=== PATIENT | female | born 1960 | race Caucasian/White ===

== ENCOUNTER 2023-10-30 21:48 | Inpatient (IN) | payer OTHER, SELFPAY ==
[2023-10-30 17:46] VITALS: BP 172/101
--- NOTE | 2023-10-30 18:19 | ED.GENMED ---
History of Present Illness
General
Chief Complaint: Headache
Source: patient
Exam Limitations: none
Time Seen by Provider: 10/30/23 17:58
Travel History
Have you had any contact with someone who has COVID-19?: No
Do you have any symptoms of coronavirus? Fever > 100 degrees, chills, cough, shortness of breath, sore throat, loss of taste or smell, muscle aches, or headache?: No
History of Present Illness
History of Present Illness:
This is a 63 year old female that comes in with c/o right frontal headache. States that she has Surgery on the right knee on Aug 30. States that she noticed at that time that she had a headache but i was mild. States that she was taking Tylenol for
her knee and it would help. States that on Tuesday she went to see the PCP as the pain had progressed. States that she ordered an MRI but she is waiting for approval. States that she was place on a steroid taper and she only took 2 tablets today
and one tomorrow. States that the pain has increased since she is almost done the steroids. State that it is a sharp pain and it is constant. States that she can't hardly sleep and it is only on the right frontal area. Denies any fever, chills,
chest pain, SOB, abd pain, nausea, vomiting, diarrhea, dizziness, urinary burning.
Past History
Past History
ED Past Medical History: Cancer (Lung CA), HTN and Other (Diverticulitis)
ED Past Surgical History: Appendectomy, Bowel resection, , Orthopedic (Carpal tunnel, Right total knee replacement) and Other (Partial thyroidectomy)
Social History
Tobacco: Former smoker
Alcohol: None
Personal:
Living: with family
Review of Systems
Review of Systems
All Other Systems: ROS reviewed and negative except as documented in HPI and ROS
Constitutional: Reports no symptoms; Denies fever or chills
EENT: Reports no symptoms
Respiratory: Reports no symptoms; Denies cough or trouble breathing
Cardiac: Reports no symptoms; Denies chest pain
ABD/GI: Reports no symptoms; Denies abdominal pain, nausea, vomiting or diarrhea
: Reports no symptoms; Denies dysuria or urgency
Musculoskeletal: Reports no symptoms
Skin: Reports no symptoms
Neurological: Reports headache (right sided); Denies dizzy
Psychiatric: Reports no symptoms
Phy Exam
General Physical Exam
General Presentation: mild distress
General age: appears stated age
General Skin: warm and dry
General Habitus: normal
General Mental: alert
General Hydration: dry mucous membranes
ENT Exam
ENT Exam: TM's normal, pharynx normal and neck supple
Eye Exam
Eye Exam: EOMI
Cardiovascular Exam
Cardiovascular Exam: regular rate/rhythm, no edema, no murmur and normal peripheral pulses
Pulmonary Exam
Pulmonary Exam: lungs clear, no respiratory distress, no rales, chest non tender, no crackles, no rhonchi, no wheezing and no cough
Gastrointestinal Exam
Gastrointestinal Exam: normal bowel sounds, non tender, soft, no organomegaly, no pulsatile mass and non distended
Musculoskeletal Exam
Musculoskeletal Exam: full ROM and no edema
Skin Exam
Skin Exam: normal color, warm/dry, no rash and no petechia
Psychiatric Exam
Psychiatric Exam: normal mood/affect
Course
Orders/Labs/Results
Orders:
Orders
10/30/23 18:18
CT Head W/o Iv Contrast Urgent
Comment:
Reason For Exam: Right frontal headache
Acetaminophen [Tylenol] 1,000 mg PO NOW STA
Dexamethasone Sod Phosphate [Decadron] 20 mg IV NOW STA
Ketorolac [Toradol] 30 mg IV NOW STA
10/30/23 19:07
Complete Blood Count/With Diff Urgent
Comprehensive Metabolic Panel Urgent
Abnormal Lab Results
10/30/23
19:07
RBC 4.16 L 10^6/uL
(4.20-5.40)
Hct 36.2 L %
(37.0-47.0)
Lymphocytes % 18.6 L %
(20.5-51.1)
BUN 38 H mg/dl
(7-17)
Creatinine 1.1 H mg/dL
(0.6-1.0)
Glucose 114 H mg/dl
(70-99)
10/30/23 19:07
10/30/23 19:07
Dehydration. Glucose nonfasting.
Vital Signs
Initial and Last Documented VS:
Initial Vital Signs
Temp Pulse Resp BP Pulse Ox
97.8 F 107 17 172/101 99
10/30/23 17:46 10/30/23 17:46 10/30/23 17:46 10/30/23 17:46 10/30/23 17:46
Last Documented Vital Signs
Temp Pulse Resp BP Pulse Ox
97.8 F 99 18 128/91 97
10/30/23 17:46 10/30/23 19:10 10/30/23 19:10 10/30/23 19:10 10/30/23 19:10
MDM/Problems Addressed
Differential Diagnosis Includes:
Glioblastoma, Complicated Migraine
MDM/Problems Addressed:
This is a 63 year old female that comes in with c/o right sided headache pain. States that she felt someting after her knee surgery on Aug 30. States that this has continued to get worse and now that she is almost off the steroids the pain is
constant and getting worse. States that she can't hardly sleep.
Will check labs, CT, give IV steroids and pain medication.
Back into see patient. Explained that there is a mass in the right posterior head. This will need further evaluation. Spoke with Dr. Parisa Powell and she felt that patient could stay here until further evaluated. Will admit to the hospitalist.
Hospitalist notified.
Chronic conditions affecting care: Cancer
Acute Exacerbation and/or Progression of Chronic Illness: Cancer
*Radiology
Radiology exam reviewed: radiology read reviewed (CT head-Large amount of asymmetric olow attenuation in the white matter of the right cerebellar hemisphere suspicious for vasogenic edema surrounding a right cerebellar metastasis given the history
of headache and metastatic lung cancer. 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 Mild to moderate bllateral frontal lobe volume
loss)
*Pulse Oximetry
Patient hypoxic: no
*EKG
Interpreted by ED Provider?: NA
Rate: EKG- N/A
*Wad Compressor Operator Adjuster Interpretation
Rate: Wad Compressor Operator Adjuster- N/A
*Critical Care Note
Total Time (30-74mins, 75-104mins- exclusive of procedures): Not Applicable
ED Attending Note
-
Portions of this chart may have been created with voice recognition software.� Occasional wrong word or��sound alike� substitutions may have occurred due to the inherent limitations of voice recognition software.
Discharge Plan
Departure
Patient Disposition: Admit
Date of Disposition: 10/30/23
Time of Disposition: 20:26
Admit to: Med/Surg
Presentation/result/management discussed w/ accepting MD/DO: Hospitalist
Condition: Good
Covid-19: Not Applicable
Discharge Problem:
Headache, Brain tumor
Referrals:
Marycruz Zhao CRNP [Family Provider] -
Interventions
Interventions:
*Risk Screen - Suicide Last Done: 10/30/23 18:39
*General Assessment Last Done: 10/30/23 17:47
*Neglect/Abuse Screening Last Done: 10/30/23 18:39
ED- Fall Risk Assessment Last Done: 10/30/23 18:39
*ED COVID-19 Vaccine History Last Done: 10/30/23 17:47
ED- Neurological Assessment Last Done: 10/30/23 18:39
Discharge Date and Time
Print Language: HAITIAN
[2023-10-30] MEDS: TYLENOL 1000 MG PO (18:35)
[2023-10-30 18:36] VITALS: BMI 28.0
[2023-10-30] MEDS: TORADOL 30 MG IV (19:03)
[2023-10-30] MEDS: DECADRON 20 MG IV (19:03)
[2023-10-30 19:10] VITALS: BP 128/91
[2023-10-30 19:17] LABS: % Basophils 0.9 % (0-2); % Eosinophils 0.3 % (0-6); % Immature Granulocytes 0.4 % (0-0.5); % Lymphocytes 18.6 % (20.5-51.1); % Monocytes 6.7 % (1.7-9.3); % Neutrophils 73.1 % (42.2-75.2); Absolute Basophils 0.1 10^3/uL (0-0.2); Absolute Lymphocytes 1.3 10^3/uL (1.2-3.4); Absolute Monocytes 0.5 10^3/uL (0.1-0.6); Absolute Neutrophils 4.9 10^3/uL (1.4-6.5); Hematocrit 36.2 % (37.0-47.0); Hemoglobin 12.6 g/dL (12.0-16.0); Mean Corp Hgb Conc. 34.8 g/dL (33.0-37.0); Mean Corpuscular Hgb 30.3 pg (27.0-31.0); Mean Platelet Volume 9.2 fL (7.4-10.4); Nucleated Red Blood Cells % 0 %; Platelet Count 325 10^3/uL (130-400); Red Blood Cell Count 4.16 10^6/uL (4.20-5.40); Red Cell Dist. Width 13.6 % (11.5-14.5); White Blood Cell Count 6.8 10^3/uL (4.8-10.8)
[2023-10-30 19:30] LABS: ALT (SGPT) 18 U/L (0-35); AST (SGOT) 23 U/L (14-36); Albumin 4.4 g/dl (3.5-5.0); Alkaline Phosphatase 106 U/L (38-126); Blood Urea Nitrogen 38 mg/dl (7-17); Calcium 9.6 mg/dl (8.4-10.2); Carbon Dioxide 25 mmol/L (22-30); Chloride 104 mmol/L (98-107); Estimated Creatinine Clearance 45 ml/min; Glucose 114 mg/dl (70-99); Potassium 4.4 mmol/L (3.5-5.1); Sodium 135 mmol/L (135-145); Total Bilirubin 0.5 mg/dl (0.2-1.3); eGFR 55.76
--- NOTE | 2023-10-30 20:30 | W.PN.UPDATE ---
Update Note
Progress Note Update
Seen and examined and discussed with nurse practitioner in detail I am in agreement with plan and management mentioned by physician assistant teacher.
Patient seen and evaluated by the physician assistant teacher, presented to the hospital complaining of almost a month persistent frontal headache and progressively worsening, started after having a right knee replacement initially contributed to spinal
anesthesia and postoperative change, so primary care physician started on steroid and MRI brain is ordered pending approval.
Since last troponin the pain continued to get worse and presented to the hospital denied any vision change or any weakness or numbness in extremities no syncope or palpitation.
Workup in the ER concerning for vasogenic edema in right cerebellar areas.
She is awake, alert and oriented x 3 hold appropriate conversation
Vital signs reviewed
Physical exam:
General: Awake, alert and oriented x3, not in distress and holds appropriate conversation.
HEENT: No active discharge, ecchymosis or bruising, moist lips, tongue and mucous membrane.
Eyes: No discharge or red conjunctiva, no nystagmus, pupils are reactive and equal
Neck:Supple, no JVD no bruit no goiter.
Respiratory: Normal AP contour and diameter, normal chest wall movement, normal respiratory effort, no respiratory distress,
Lungs: Good air entry bilaterally, no wheezing or rhonchi, no rales or crackles
Heart: S1, S2 regular, normal rate, no added sound.
Gastrointestinal: Positive bowel sounds, soft, nontender, no guarding or rigidity or organomegaly
Musculoskeletal: , no chest wall abnormality or tenderness. All joints and extremities have good range of motion, no muscle tenderness or any joint swelling or tenderness.
Extremities: No pitting edema, good peripheral pulses, good range of motion
Skin: Warm and dry, no ulceration, normal color.
Neurological: Awake, alert and oriented x3, cranial nerve II-XII grossly intact, speech clear and comprehensive, good muscle tone, normal sensory and motor function
Psychiatric: Normal mood, normal thought and judgment, normal affect,
Workup including labs, imaging, EKG and archive reviewed.
Assessment and plan:
Headache: Concerning for right cerebellar mass with vasogenic edema, with known history of lung cancer concerning for mets.
Neurosurgery contacted and recommended MRI brain with and without and CT chest, abdominal pelvis patient does CT chest, abdominal pelvis every 3 months and Alvino Powell the last time was 2 months ago tried to get a copy but will still get a do the CTA
and in case if there is any new lesions specially patient natural cannot cancer she has sound like small cell lung cancer.
Decadron 20 mg given we will continue 6 mg of 6-hour
She is afraid of narcotics specially orally we will do a low-dose of morphine 1 mg and uptitrate as needed
Reglan for nausea as she admitted Zofran making her sick
Vasogenic edema, as above
History of lung cancer, diagnosed 2023 and did not get any chemo in the last 2 years and follow-up with Alvino Powell.
The rest of the assessment and management as per physician assistant teacher
All discussed with the patient and the family
Discussed with physician assistant teacher
CT brain:
1. Large amount of asymmetric low attenuation in the white matter of the RIGHT CEREBELLAR HEMISPHERE suspicious for VASOGENIC EDEMA surrounding a right cerebellar metastasis given the history of headache and metastatic lung cancer.
2. 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
3. Mild to moderate bilateral frontal lobe volume loss.
--- NOTE | 2023-10-30 21:03 | HPS.HSE ---
Family Physician
-
Family Physician: Marycruz Zhao
Chief Complaint
-
Headache
History of Present Illness
Patient is a 63 y/o female past medical history of hypertension and Stage IV Lung CA who presents with headache. She notes since she had her knee replacement in August she has had a constant right sided headache. She describes the pain a sharp
stab. She denies any associated photophobia or phonophobia. She denies any visual changes, numbness, tingling, weakness, or difficulty with speech. Work-up in the ED revealed a brain tumor in the right cerebellum with associated edema. Patient
reports she was diagnosed with lung cancer with bony mets in 2019. She states the lung cancer was inoperable thus she received chemotherapy and immunotherapy. She follows at [facility] but has not received any treatment since 2021, and has routine
CT scans every 3 months.
Medical History
Past Medical History
Past Medical History: Reports Other
Additional Past Medical History:
Stage 4 Lung Cancer s/p chemo/immunotherapy
Essential Hypertension
Past Surgical History: Reports Other
Additional Past Surgical History:
Section
Appendectomy
Bowel Resection
Right Total Knee Replacement
Partial Thyroidectomy
Bunionectomy
Social History
Tobacco: Former Smoker (Quit in 2013)
Alcohol: Occasional
Family History
Family History: Not pertinent
Allergies / Home Medications
Allergies reflects when Allergies were last updated in [employer].
Home Medications with original date entered in [employer]
Allergy/Medication List:
Allergies
Allergy/AdvReac Type Severity Reaction Status Date / Time
Opioids - Morphine Analogues Allergy Nausea / Verified 10/30/23 17:44
Vomiting
Penicillins Allergy Rash Verified 10/30/23 17:44
Home Medications
candesartan 32 mg-hydrochlorothiazide 25 mg tablet 1 tab PO DAILY 10/30/23
cetirizine 10 mg tablet (Zyrtec) 10 mg PO DAILY 10/30/23
Review of Systems
-
A 12 point ROS was completed and negative except as noted: Yes
Constitutional: Denies Fever or Chills
Respiratory: Denies Cough or Trouble Breathing
Cardiac: Denies Chest Pain or Palpitations
Physical Exam
Vital Signs
Vital Signs
Temp Pulse Resp BP Pulse Ox
97.8 F 99 18 128/91 97
10/30/23 17:46 10/30/23 19:10 10/30/23 19:10 10/30/23 19:10 10/30/23 19:10
Physical Exam
General: Comfortable and Conversant
HEENT: Anicteric, Moist mucous membranes and PERRLA
Respiratory: Clear and Non Labored Respirations
Cardiac: S1/S2 and Regular Rhythm
GI: Soft and Non Tender
Rectal: Deferred by Provider
Musculoskeletal: No Clubbing, No Cyanosis and No Edema
Skin: Warm and Dry
Neuro: Awake, Alert, Oriented and Nonfocal/grossly intact
Psych: Calm
Laboratory Results
-
10/30/23 19:07
10/30/23 19:07
Laboratory Results
Total Bilirubin 0.5 mg/dl (0.2-1.3) 10/30/23 19:07
AST 23 U/L (14-36) 10/30/23 19:07
ALT 18 U/L (0-35) 10/30/23 19:07
Alkaline Phosphatase 106 U/L (38-126) 10/30/23 19:07
Data Reviewed
-
Lab Data: Labs Reviewed by me
Old Records: Requested and Reviewed
Impression/Plan
-
Right Cerebellar Brain Mass with Vasogenic Edema, likely Metastatic Lung Cancer
-Consult Neurosurgery and Oncology
-Check Brain MRI with and without contrast
-Check Chest/Abd/Pelvis CT scan for re-staging
-Continue Decadron
-Monitor neuro-checks
-Attempt to obtain records [facility] of recent CT scan
Essential Hypertension
-Continue candesartan/HCTZ
DVT proph: SCDs
Code Status: Full Code
[2023-10-30 22:34] VITALS: BP 132/83
[2023-10-30] MEDS: TYLENOL 650 MG PO (23:05)
[2023-10-30 23:50] VITALS: BMI 28.8
[2023-10-31] MEDS: TYLENOL 650 MG PO ×2 (05:56→13:20)
[2023-10-31] MEDS: ORETIC 25 MG PO (07:15)
[2023-10-31] MEDS: DECADRON 6 MG IV ×3 (07:16→20:06)
[2023-10-31] MEDS: ZYRTEC 10 MG PO (07:16)
[2023-10-31] MEDS: OMNIPAQUE 50 ML PO (07:18)
[2023-10-31 07:26] VITALS: BP 142/91
[2023-10-31 07:55] LABS: Hematocrit 36.5 % (37.0-47.0); Hemoglobin 12.2 g/dL (12.0-16.0); Mean Corp Hgb Conc. 33.4 g/dL (33.0-37.0); Mean Corpuscular Hgb 29.9 pg (27.0-31.0); Mean Corpuscular Volume 89.5 fL (81.0-99.0); Mean Platelet Volume 9.4 fL (7.4-10.4); Platelet Count 300 10^3/uL (130-400); Red Blood Cell Count 4.08 10^6/uL (4.20-5.40); Red Cell Dist. Width 13.4 % (11.5-14.5)
[2023-10-31 08:17] LABS: Blood Urea Nitrogen 48 mg/dl (7-17); Calcium 9.5 mg/dl (8.4-10.2); Carbon Dioxide 22 mmol/L (22-30); Chloride 105 mmol/L (98-107); Estimated Creatinine Clearance 42 ml/min; Glucose 128 mg/dl (70-99); Potassium 4.4 mmol/L (3.5-5.1); Sodium 135 mmol/L (135-145); eGFR 50.23
[2023-10-31] MEDS: ATACAND 32 MG PO (08:45)
--- NOTE | 2023-10-31 09:37 | CON.ONC ---
Addendum entered and electronically signed by Bryan Perkins MD 10/31/23 12:11:
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 Fortunately, there is no evidence of active disease below the neck. Will await MRI. If she continues with a solitary dominant lesion, she most likely would
benefit in terms of palliation as well as longevity by neurosurgical resection. I discussed possible transfer to [facility] for the neurosurgery, she is comfortable staying here, although would most likely have to be transferred to
[place] for the surgery.
Original Note:
Impression
Impression
Stage IV lung cancer ([facility], chemo/immunotherapy)
Acute persistent frontal headaches
Brain mass on imaging
Vasogenic edema
Plan
Plan
10/30 WBC 8, Hgb 12, PLT 300
CBC w/ diff daily
CT c/a/p today
Neurosurgery consult
Pain/symptom management
Emotional support
We will follow. Await Neurosurgery consultation.
She may require transfer to [facility].
Patient History
History of Present Illness
Itzel Barrett is a 63 year old female that presented to the ER, 10/29, complaining of acute right frontal headaches. She recently had her right knee replaced in August 2023 and recalls having mild headaches at the time. She discussed with her PCP whom
ordered MRI which was pending insurance authorization. She was placed on a brief steroid taper. She describes the pain as sharp and she is holding her forehead. She has history of Stage IV lung cancer treated at [facility]. She had received Carboplatin,
Keytruda, and Pemetrexed. Keytruda was discontinued after a few months due to an episode of acute pneumonitis. She denies any associated dizziness, gait disturbance, photophobia or phonophobia She denies numbness, tingling, weakness, or difficulty
with speech. Work-up in the ED revealed a mass in the right cerebellum with associated edema. Patient reports she was diagnosed with lung cancer w/ bony mets after a bone biopsy in 2019. She states the lung cancer was inoperable thus she received
chemotherapy and immunotherapy. She follows at [facility] but has not received any treatment since 2021, and has routine CT scans every 3 months. She follows with Dr. Saúl Leija.
Past-Medical/Surgical History
Stage IV lung cancer ([facility])
Hypertension
Diverticulitis
Appendectomy
Bowel resection
Carpal tunnel
Right total knee replacement
Partial thyroidectomy
Former smoker x10 years
Patient Medication
�Medication �Instructions �Recorded �Confirmed �Last Taken �Type
candesartan 32 1 tab PO DAILY Blood Pressure 10/30/23 10/30/23 Unknown History
mg-hydrochlorothiazide 25 mg tablet
cetirizine 10 mg tablet (Zyrtec) 10 mg PO DAILY Allergies 10/30/23 10/30/23 Unknown History
Active Medications
Generic Name Dose Route Start Last Admin
Trade Name Freq PRN Reason Stop Dose Admin
Acetaminophen 650 mg 10/30/23 22:17 10/31/23 05:56
Acetaminophen 325 Mg Tablet PO 11/27/23 22:16 650 mg
Q4HPRN PRN Administration
mild pain/ fever>100.5F
Candesartan Cilexetil 32 mg 10/31/23 08:00 10/31/23 08:45
Candesartan 16 Mg Tablet PO 11/28/23 07:59 32 mg
DAILY ANGELLA Administration
Cetirizine HCl 10 mg 10/31/23 08:00 10/31/23 07:16
Cetirizine Hcl 10 Mg Tablet PO 11/28/23 07:59 10 mg
DAILY ANGELLA Administration
Dexamethasone Sodium Phosphate 6 mg 10/31/23 08:00 10/31/23 07:16
Dexamethasone 4 Mg/Ml 1 Ml Vial IV 11/28/23 07:59 6 mg
Q6H ANGELLA Administration
Heparin Sodium (Porcine) 500 unit 10/31/23 07:57
Heparin Flush Pf (100 Unit/Ml) 5 Ml Syringe IV 11/28/23 07:56
PRN PRN
SQ PORT FLUSH
Hydrochlorothiazide 25 mg 10/31/23 08:00 10/31/23 07:15
Hydrochlorothiazide 25 Mg Tablet PO 11/28/23 07:59 25 mg
DAILY ANGELLA Administration
Metoclopramide HCl 5 mg 10/30/23 22:17
Metoclopramide 10 Mg/2 Ml Vial IV 11/27/23 22:16
Q6HPRN PRN
nausea
Morphine Sulfate 1 mg 10/30/23 22:17
Morphine 2 Mg/Ml Syringe IV 11/13/23 22:16
Q4HPRN PRN
severe pain
Sodium Chloride 0 flush 10/30/23 23:00
Sodium Chloride 0.9% (Flush) Syringe IV 11/27/23 22:59
PER PROTOCOL ANGELLA
Review of Systems
-
History Source: Patient and Family
Constitutional: Reports No Symptoms
EENT: Reports No Symptoms
Respiratory: Reports No Symptoms
Cardiac: Reports No Symptoms
GI: Reports No Symptoms
Breast: Reports N/A
: Reports No Symptoms
Musculoskeletal: Reports No Symptoms
Skin: Reports No Symptoms
Neuro: Reports Headache
Endocrine: Reports No Symptoms
Hematologic/Lymphatic: Reports No Symptoms
Allergy / Immunology: Reports No Symptoms
Psych: Reports No Symptoms
Physical Exam
-
patient resting in bed. she is holding her forehead. She states that her pain is somewhat improved with steroids but it is hard to differentiate.
General: Well Developed, Well Nourished, No Apparent Distress and Conversant
HEENT: Negative Jaundice
Cardiology: S1 and S2; Negative Murmur
Pulmonary: Clear
GI: Normal Bowel Sounds
Genito-Urinary: Deferred by me
Musculoskeletal: Normal Gait & Station
Extremities: Pulses Present
Neurology: Non Focal
Skin: Warm, Dry and IV Access / Catheter Site (right chest wall port)
Hematologic / Lymphatic: No Lymphadenopathy
Psych: Calm
Labs
Lab Results
WBC 8.0 10^3/uL (4.8-10.8) 10/31/23 07:33
RBC 4.08 10^6/uL (4.20-5.40) L 10/31/23 07:33
Hgb 12.2 g/dL (12.0-16.0) 10/31/23 07:33
Hct 36.5 % (37.0-47.0) L 10/31/23:33
MCV 89.5 fL (81.0-99.0) 10/31/23 07:33
MCH 29.9 pg (27.0-31.0) 10/31/23 07:33
MCHC 33.4 g/dL (33.0-37.0) 10/31/23 07:33
RDW 13.4 % (11.5-14.5) 10/31/23 07:33
Plt Count 300 10^3/uL (130-400) 10/31/23 07:33
MPV 9.4 fL (7.4-10.4) 10/31/23 07:33
Abs Immat Gran (auto) 0.0 10^3/uL (0-0.05) 10/30/23 19:07
Absolute Neuts (auto) 4.9 10^3/uL (1.4-6.5) 10/30/23 19:07
Absolute Lymphs (auto) 1.3 10^3/uL (1.2-3.4) 10/30/23 19:07
Absolute Monos (auto) 0.5 10^3/uL (0.1-0.6) 10/30/23 19:07
Absolute Eos (auto) 0.0 10^3/uL (0-0.7) 10/30/23 19:07
Absolute Basos (auto) 0.1 10^3/uL (0-0.2) 10/30/23 19:07
Immature Gran % 0.4 % (0-0.5) 10/30/23 19:07
Neutrophils % 73.1 % (42.2-75.2) 10/30/23 19:07
Lymphocytes % 18.6 % (20.5-51.1) L 10/30/23 19:07
Monocytes % 6.7 % (1.7-9.3) 10/30/23 19:07
Eosinophils % 0.3 % (0-6) 10/30/23 19:07
Basophils % 0.9 % (0-2) 10/30/23 19:07
Creatinine 1.2 mg/dL (0.6-1.0) H 10/31/23 07:33
Vital Signs
Vital Signs
Temp Pulse Resp BP Pulse Ox
97.6 F 74 18 142/91 96
10/31/23 07:26 10/31/23 07:26 10/31/23 07:26 10/31/23 07:26 10/31/23 07:26
10/30/[address]: Large amount of asymmetric low attenuation in the white matter of the RIGHT CEREBELLAR HEMISPHERE suspicious for VASOGENIC EDEMA surrounding a right cerebellar metastasis given the history of headache and metastatic lung cancer. Mild
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 Mild to moderate bilateral frontal lobe volume loss.
10/31/23 CT c/a/p: There is a linear nodular area of parenchymal density at the lower anteromedial aspect of the right upper lobe presumably representing the area treated neoplasm/scarring. There is a 9 mm sclerotic lesion in the posterior aspect of
the right acetabulum which may be benign lesion or a treated metastasis.
[2023-10-31] MEDS: REGLAN 5 MG IV (13:28)
[2023-10-31] MEDS: MORPHINE SULFATE 1 MG IV (13:30)
[2023-10-31 15:13] VITALS: BP 130/79
--- NOTE | 2023-10-31 15:24 | PTOTSP ---
Orders received. Chart reviewed. Pt currently at independent level with basic self care, transfers and functional mobility in room and bathroom without AD. No skilled OT indicated at this time. Will sign off.
--- NOTE | 2023-10-31 15:39 | CM ---
inventory control manager reviewed patient's chart and met with patient and patient lives with her spouse in a bilevel home, patient is independent with adl's and ambulation, no dme, patient drives, patient has a prescription plan and uses [facility] pharmacy.
PCP: Dr. Tinoco
Plan; Home when stable, no needs.
--- NOTE | 2023-10-31 17:49 | CON.NS ---
Consultation
-
Date/Time Consultation Performed: 17:50; 10/31/2023
Performing Provider: Sherry
Chief Complaint
History of Present Illness
This is a neurosurgical consultation on a 63-year-old female, with past medical history of stage IV lung cancer, who presents with approximately 1 month history of right-sided frontal headaches. She had a right knee replacement in August 2023,
and reports that the headaches may have started at that time. She was placed on a brief steroid taper, which did help with her headaches. Once the steroids have been tapered off, the headache returned. She denies any bowel difficulties, double
vision, blurry vision. She denies any weakness, or any recent falls. She denies any nausea or vomiting. In the past, she has received carboplatin, Keytruda, and pemetrexed. She reports that she has been in remission/with stable disease since
2021. She reports that she has routine CT scans every 3 months. Her oncologist is Dr. Saúl aguilar. She had bony mets primarily to the bilateral hips, and sacrum. This was treated with radiation.
Review of Systems
-
A 10 point review of systems, including constitutional, ENT, cardiovascular, respiratory, GI, , musculoskeletal, neurologic, endocrinologic, psychiatric, was performed and was otherwise negative, except for stated in HPI.
Medication and Allergies
Home Medications
Home Medications
�Medication �Instructions �Recorded
candesartan 32 1 tab PO DAILY Blood Pressure 10/30/23
mg-hydrochlorothiazide 25 mg tablet
cetirizine 10 mg tablet (Zyrtec) 10 mg PO DAILY Allergies 10/30/23
Allergies
Allergies
Allergy/AdvReac Type Severity Reaction Status Date / Time
Opioids - Morphine Analogues Allergy Nausea / Verified 10/30/23 17:44
Vomiting
Penicillins Allergy Rash Verified 10/30/23 17:44
Physical Exam
-
Exam:
Awake, alert, no apparent distress.
Pupils are equal and reactive.
Extraocular movements are full, with minimal right lateral gaze nystagmus.
Face is symmetric, tongue is midline.
Motor: 5/5 strength bilaterally in upper and lower extremities.
Cerebellar: Right subtle [id number] dysmetria. Rapid alternating movements normal.
Head is normocephalic atraumatic.
Neck is supple.
Breathing nonlabored.
Pulses palpable.
Regular rhythm.
Abdomen is soft.
Extremities are warm.
Right subclavian port site is noted.
MRI of the brain with and without contrast performed on 10/31/2023 was reviewed. There is approximately 2 cm right superior cerebellar lesion, just abutting the tentorium, with adjacent vasogenic edema. Imaging appears to be most consistent with
metastatic lesion. No other lesions are noted.
Problems
-
Problem Status Onset Code
Brain tumor D49.6
Headache R51.9
Assessment / Plan
-
This is a 63-year-old female who presents with right cerebellar mass, in the setting of stage IV metastatic lung carcinoma history. Imaging demonstrates likely metastatic lesion.
Discussed management options with the patient. Given that this is a single solitary lesion, and that she has had stable disease for the past 2 years off of chemotherapy, would recommend excisional biopsy for both diagnostic and therapeutic
purposes. She is in agreement. Discussed that this would require transfer to [facility]. She expresses understanding of this and wishes to proceed with transfer.
In interim continue with dexamethasone 4 mg every 6 hours.
--- NOTE | 2023-10-31 18:41 | W.PN.HOSP.TC ---
Addendum entered and electronically signed by Daniel Matute MD 10/31/23 21:45:
Attending Addendum-
I saw and evaluated the patient. I reviewed the resident�s note and agree with findings and plan as documented in the resident�s note. patient continues to have frontal GARCIA but much improved after steroids.Denies weakness numbness tingling in any
extremities or vision changes Full 12 point ROS reviewed and negative except as documented Exam: gen NAD heart RRR, PEERLA- lateral gaze nystagmus present lungs clear abd soft LE no edema Plan:
# Brain mass with vasogenic edema- right superior cerebellar location, MRI brain personally reviewed, solitary mass, likely met from lung ca, cont IV steroids, d/w NS re transfer to [facility] in am for surgery and bx, c/s CM
# HTN- stable monitor cont meds
# Stage 4 lung ca- h/o mets to bone, s/p rads and chemo, bria watson Dr. Treat.
Time spent coordinating care, review of plan of care with resident, transition of care, review of records, med rec, consults, notes, labs, rads, d/w nursing, NS, transfer planning � 59 mins
Original Note:
Today's Communication/Plan
-
Consult case management
Transfer to [facility] tomorrow for further management
Assessment / Plan
Assessment / Plan
63-year-old female with past medical history of hypertension and stage IV lung cancer, 2020 treated with chemotherapy/immunotherapy, presented to the ER yesterday complaining of right frontal headache. ED workup revealed mass in the right
cerebellum with associated vasogenic edema.
Imaging:
CT head 10/30/2023ight cerebellar hemisphere mass with surrounding vasogenic edema
CT chest/abdomen/pelvis 10/31/2023- linear nodular area of parenchymal density at the lower anteromedial aspect of the right upper lobe presumably representing the area treated neoplasm/scarring
Brain MRI 10/31/2023. 2.0 cm enhancing intra-axial BRAIN METASTASIS in the SUPERIOR RIGHT CEREBELLAR HEMISPHERE with SURROUNDING SEVERE VASOGENIC EDEMA.
2. Inferior extension of the cerebellar tonsils in the foramen magnum. Diagnostic possibilities are (1) cerebellar tonsillar herniation secondary to mass effect caused by the right cerebellar mass or (2) a congenital Chiari I malformation.
3. Mild diffuse cerebral volume loss.
4. Moderate left sphenoid sinusitis.
Conditions prior to admission
Stage IV lung cancer, s/p chemotherapy/immunotherapy
Hypertension
Right knee pain, s/p right total knee replacement
Former smoker
Impression/plan
#Right cerebellar mass with vasogenic edema
Likely from metastatic lung cancer
S/p chemotherapy/immunotherapy with carboplatin, Keytruda, pemetrexed
Keytruda was discontinued due to pneumonitis
Patient has regular follow-ups at [place], routine CT scans
Oncology consult
As per neurosurgery�recommended excisional biopsy for diagnostic and therapeutic purpose
Requires transfer to [place]
Continue steroids
# Hypertension
Continue candesartan/hydrochlorothiazide
# DVT prophylaxis
Would like to hold off for now as per oncology
Anticipated Discharge: Within 24 hours
Subjective/Interval History
-
Date of Service: October 31, 2023
Patient had mild headache, gets better with Tylenol and steroids
Objective Data
-
Labs:
Laboratory Results
10/31/23
07:33
WBC 8.0
Hgb 12.2
Hct 36.5 L
Plt Count 300
Sodium 135
Potassium 4.4
Chloride 105
Carbon Dioxide 22
BUN 48 H
Creatinine 1.2 H
Glucose 128 H
Calcium 9.5
Vital Signs:
Vital Signs
Temp Pulse Resp BP Pulse Ox
97.8 F 67 17 130/79 98
10/31/23 15:13 10/31/23 15:13 10/31/23 15:13 10/31/23 15:13 10/31/23 15:13
I&O
10/30/23 10/31/23 11/01/23
06:59 06:59 06:59
Intake Total 180 / 180
Balance 180 / 180
Review of Systems
-
All other systems: Reviewed and negative (Except as mentioned above)
Physical Exam
-
General: No Apparent Distress and Other (Right subclavian port site)
HEENT: Normocephalic and Atraumatic
Respiratory: Clear to Auscultation
Cardiac: Regular Rhythm and S1/S2
GI: Soft, Nontender, Nondistended and Normal Bowel Sounds
Musculoskeletal: No Clubbing, No Cyanosis and No Edema
Skin: Warm and Dry
Neuro: Awake, Alert, Oriented, AO x 3, No Motor Deficits, Nonfocal/Grossly Intact and Other (Gait normal, no ataxia)
[2023-10-31 23:38] VITALS: BP 122/72
--- NOTE | 2023-11-01 02:12 | W.DCSUMMARY ---
Addendum entered and electronically signed by Daniel Matute MD 11/01/23 22:26:
Attending Addendum:
Read reviewed and agree. See same day progress note for additional details.
Theo Matute MD
Original Note:
Documented by User: Soheila Rainey MD, Resident 11/01/23 14:28
Discharge Summary
Discharge Data
Date of Admission: 10/30/23
Date of Discharge: 11/01/23
-
Pending Results: No
Hospital Course
DISCHARGE DIAGNOSIS
1. Right cerebellar brain mass
2. Hypertension
3. History of stage IV lung cancer with mets to bone, s/p radiotherapy and chemotherapy
HOSPITAL COURSE:
63-year-old female with past medical history of hypertension and stage IV lung cancer, 2020 treated with chemotherapy/immunotherapy, presented to the ER complaining of right frontal headache from the past few weeks. Patient states that she noticed
the headaches getting worse over time after she had a recent right total knee replacement done in August 2023 and thought the headaches are due to her spinal anesthesia. She was placed on a brief steroid taper, which did help with her headaches.
Once the steroids have been tapered off, the headache returned. Patient denies bladder or bowel disturbances, double vision, blurry vision, nausea, vomiting, weakness, any focal neurological deficits. ED workup revealed mass in the right
cerebellum with associated vasogenic edema. In the past, she has received carboplatin, Keytruda, and pemetrexed and Keytruda was discontinued due to pneumonitis. She reports that she has been in remission/with stable disease since 2021 and she
follows up with [facility] , CT scans every 3 months. Her oncologist is Dr. Saúl Leija. She was started on Decadron, pain control with acetaminophen, morphine as needed. Oncology and neurosurgery was consulted. Brain MRI showed evidence of
brain mets in the superior right cerebellar hemisphere with surrounding severe vasogenic edema, Chiari I malformation. CT chest/abdomen/pelvis for staging�linear nodular parenchymal density in the right upper lobe, presumably from treated
neoplasm/scarring. Lesion in her right cerebellar hemisphere is likely to be a metastatic lesion, s/p stage IV lung cancer with bone mets( 2019). Neurosurgery recommended excisional biopsy for both diagnostic and therapeutic purposes. Plan was
discussed with the patient which requires transfer to [facility]. Also, discussed the case with Dr. Powell.
Discharge Plan
-
Patient Disposition: Other
Discharge Diagnosis/Procedures: Right superior cerebellar metastatic lesion
Condition: Fair
Diet: As tolerated
Referrals:
Marycruz Zhao CRNP [Family Provider] -
Prescriptions:
New
dexamethasone sodium phosphate 4 mg/mL Solution
6 mg IV Q6H 1 Days Qty: 6 0RF
Continued
cetirizine [Zyrtec] 10 mg Tablet
10 mg PO DAILY
candesartan-hydrochlorothiazid 32-25 mg Tablet
1 tab PO DAILY
Discharge Orders:
Discharge Patient (As Directed); Ordered 11/01/23
Ordered By: Soheila Rainey
Discharge Date and Time
Discharge Date/Time: 11/01/23 16:06
Print Language: CITIZEN [place]

Documented by User: Daniel Matute MD 11/01/23 22:21
Discharge Summary
Discharge Data
Date of Admission: 10/30/23
Date of Discharge: 11/01/23
Discharge Plan
-
Patient Disposition: Other
Discharge Diagnosis/Procedures: Right superior cerebellar metastatic lesion
Condition: Fair
Diet: As tolerated
Referrals:
Marycruz Zhao CRNP [Family Provider] -
Prescriptions:
New
dexamethasone sodium phosphate 4 mg/mL Solution
6 mg IV Q6H 1 Days Qty: 6 0RF
Continued
cetirizine [Zyrtec] 10 mg Tablet
10 mg PO DAILY
candesartan-hydrochlorothiazid 32-25 mg Tablet
1 tab PO DAILY
Discharge Orders:
Discharge Patient (As Directed); Ordered 11/01/23
Ordered By: Soheila Rainey
Discharge Date and Time
Discharge Date/Time: 11/01/23 16:06
Print Language: CITIZEN OF [place]
[2023-11-01] MEDS: DECADRON 6 MG IV ×3 (03:00→13:30)
[2023-11-01] MEDS: TYLENOL 650 MG PO ×2 (04:33→12:57)
[2023-11-01 05:21] LABS: % Basophils 0.1 % (0-2); % Eosinophils 0.1 % (0-6); % Immature Granulocytes 0.5 % (0-0.5); % Lymphocytes 7.6 % (20.5-51.1); % Monocytes 2.1 % (1.7-9.3); % Neutrophils 89.6 % (42.2-75.2); Absolute Immature Granulocytes 0.1 10^3/uL (0-0.05); Absolute Monocytes 0.3 10^3/uL (0.1-0.6); Absolute Neutrophils 11.4 10^3/uL (1.4-6.5); Hematocrit 37.1 % (37.0-47.0); Hemoglobin 12.4 g/dL (12.0-16.0); Mean Corp Hgb Conc. 33.4 g/dL (33.0-37.0); Mean Corpuscular Hgb 29.5 pg (27.0-31.0); Mean Corpuscular Volume 88.3 fL (81.0-99.0); Mean Platelet Volume 9.5 fL (7.4-10.4); Nucleated Red Blood Cells % 0 %; Platelet Count 322 10^3/uL (130-400); Red Cell Dist. Width 13.6 % (11.5-14.5); White Blood Cell Count 12.7 10^3/uL (4.8-10.8)
[2023-11-01 05:49] LABS: Blood Urea Nitrogen 43 mg/dl (7-17); Calcium 9.3 mg/dl (8.4-10.2); Carbon Dioxide 23 mmol/L (22-30); Chloride 102 mmol/L (98-107); Estimated Creatinine Clearance 55 ml/min; Glucose 125 mg/dl (70-99); Potassium 4.4 mmol/L (3.5-5.1); Sodium 133 mmol/L (135-145); eGFR > 60.00
[2023-11-01 07:30] VITALS: BP 130/89
[2023-11-01] MEDS: ATACAND 32 MG PO (07:52)
[2023-11-01] MEDS: ZYRTEC 10 MG PO (07:52)
[2023-11-01] MEDS: ORETIC 25 MG PO (07:52)
[2023-11-01] MEDS: MORPHINE SULFATE 1 MG IV (08:50)
[2023-11-01] MEDS: REGLAN 5 MG IV (08:51)
--- NOTE | 2023-11-01 09:00 | W.PN.HOSP.TC ---
Addendum entered and electronically signed by Daniel Matute MD 11/01/23 22:25:
Attending Addendum-
I saw and evaluated the patient. I reviewed the resident�s note and agree with findings and plan as documented in the resident�s note. Worsening GARCIA extending into right side of face. No other neuro deficits. Denies weakness numbness tingling in any
extremities or vision changes Full 12 point ROS reviewed and negative except as documented Exam: gen NAD heart RRR, PEERLA lungs clear abd soft LE no edema Plan:
# Brain mass with vasogenic edema- right superior cerebellar location, MRI brain personally reviewed, solitary mass, likely met from lung ca, cont IV steroids, transfer to [facility] for excisional bx today
# HTN- stable monitor cont meds
# Stage 4 lung ca- h/o mets to bone, s/p rads and chemo, primary onc marcus Leija.
Dispo Transfer to [facility] today d/w Dr. Powell
Time spent coordinating care, review of plan of care with resident, transition of care, DC planning, review of records, med rec, consults, notes, labs, rads, d/w nursing, NS, transfer paperwork filled out � 40 mins
Original Note:
Today's Communication/Plan
-
Continue IV Decadron 6 mg, Q6
Continue candesartan/hydrochlorothiazide
Transfer to [facility] for further management of the right cerebellar mass.
Assessment / Plan
Assessment / Plan
63-year-old female with past medical history of hypertension and stage IV lung cancer, 2020 treated with chemotherapy/immunotherapy, presented to the ER complaining of right frontal headache. ED workup revealed mass in the right cerebellum with
associated vasogenic edema.
Patient will be transferred to [facility] for further management for right cerebellar metastatic mass. Discussed with Dr. Pwoell, about the transfer.
Imaging:
CT head 10/30/2023ight cerebellar hemisphere mass with surrounding vasogenic edema
CT chest/abdomen/pelvis 10/31/2023- linear nodular area of parenchymal density at the lower anteromedial aspect of the right upper lobe presumably representing the area treated neoplasm/scarring
Brain MRI 10/31/2023. 2.0 cm enhancing intra-axial BRAIN METASTASIS in the SUPERIOR RIGHT CEREBELLAR HEMISPHERE with SURROUNDING SEVERE VASOGENIC EDEMA.
2. Inferior extension of the cerebellar tonsils in the foramen magnum. Diagnostic possibilities are (1) cerebellar tonsillar herniation secondary to mass effect caused by the right cerebellar mass or (2) a congenital Chiari I malformation.
3. Mild diffuse cerebral volume loss.
4. Moderate left sphenoid sinusitis.
Conditions prior to admission
Stage IV lung cancer, s/p chemotherapy/immunotherapy
Hypertension
Right knee pain, s/p right total knee replacement
Former smoker
Hyponatremia
Impression/plan
#Right cerebellar mass with vasogenic edema
Likely from metastatic lung cancer
S/p chemotherapy/immunotherapy with carboplatin, Keytruda, pemetrexed
Keytruda was discontinued due to pneumonitis
Patient has regular follow-ups at [place], routine CT scans
Oncology consult
As per neurosurgery�recommended excisional biopsy for diagnostic and therapeutic purpose
Requires transfer to [place]
Continue steroids
# Hyponatremia
Sodium 133
Likely due to SIADH
# Hypertension
Continue candesartan/hydrochlorothiazide
# DVT prophylaxis
Would like to hold off for now as per oncology
Anticipated Discharge: Today
Subjective/Interval History
-
Date of Service: November 01, 2023
Patient reports having worsening right frontal headache, associated with pain radiating to the lateral angle of the eye. she took morphine prn once. Her sleep is disturbed because of the headache
Objective Data
-
Labs:
Laboratory Results
11/01/23
04:35
WBC 12.7 H
Hgb 12.4
Hct 37.1
Plt Count 322
Sodium 133 L
Potassium 4.4
Chloride 102
Carbon Dioxide 23
BUN 43 H
Creatinine 0.9
Glucose 125 H
Calcium 9.3
Vital Signs:
Vital Signs
Temp Pulse Resp BP Pulse Ox
98.0 F 75 18 130/89 94
11/01/23 07:30 11/01/23 07:30 11/01/23 07:30 11/01/23 07:52 11/01/23 07:30
I&O
10/31/23 11/01/23 11/02/23
06:59 06:59 06:59
Intake Total 300 / 300
Balance 300 / 300
Review of Systems
-
All other systems: Reviewed and negative (Except as mentioned above)
Physical Exam
-
General: Well Developed, Well Nourished and Other (Right subclavian port site)
HEENT: Normocephalic and Atraumatic
Respiratory: Clear to Auscultation
Cardiac: Regular Rhythm and S1/S2
GI: Soft, Nontender, Nondistended and Normal Bowel Sounds
Musculoskeletal: No Clubbing, No Cyanosis and No Edema
Skin: Warm and Dry
Neuro: Awake, Alert, Oriented, AO x 3, No Motor Deficits, Nonfocal/Grossly Intact and Other (Gait normal, no ataxia, no dysdiadochokinesia,)
Psych: Calm
--- NOTE | 2023-11-01 11:42 | W.PN.ONC ---
Today's Communication / Plan
-
10/31 WBC 12.7, Hgb 12.4, PLT 322
Monitor CBC w/ diff daily
Continue steroids
Pain/symptom management
Emotional support
Plan for transfer to [facility] for excisional biopsy for both diagnostic and therapeutic purposes and further treatment.
Patient verbalizes understanding of the plan.
Impression
Impression
Stage IV lung cancer ([facility], chemo/immunotherapy)
Acute persistent frontal headaches
Brain mass on imaging
Vasogenic edema
Leukocytosis (on steroids)
Subjective/Objective
Subjective/Objective
patient is holding her forehead upon exam. she states the pain persists and is radiating down to her right hoahaoism. she is agreeable to transfer to [facility] for biopsy.
Vital Signs:
Vital Signs
Temp Pulse Resp BP Pulse Ox
98.0 F 75 18 130/89 94
11/01/23 07:30 11/01/23 07:30 11/01/23 07:30 11/01/23 07:52 11/01/23 08:00
10/31/23 Brain MRI: 2.0 cm enhancing intra-axial BRAIN METASTASIS in the SUPERIOR RIGHT CEREBELLAR HEMISPHERE with SURROUNDING SEVERE VASOGENIC EDEMA. Inferior extension of the cerebellar tonsils in the foramen magnum. Diagnostic possibilities are (1)
cerebellar tonsillar herniation secondary to mass effect caused by the right cerebellar mass or (2) a congenital Chiari I malformation.Mild diffuse cerebral volume loss. Moderate left sphenoid sinusitis.
10/31/23:CT C/A/P: There is a linear nodular area of parenchymal density at the lower anteromedial aspect of the right upper lobe presumably representing the area treated neoplasm/scarring. There is a 9 mm sclerotic lesion in the posterior aspect of
the right acetabulum which may be benign lesion or a treated metastasis
Lab Results:
Laboratory Data
WBC 12.7 10^3/uL (4.8-10.8) H 11/01/23 04:35
Hgb 12.4 g/dL (12.0-16.0) 11/01/23 04:35
Plt Count 322 10^3/uL (130-400) 11/01/23 04:35
eGFR > 60.00 11/01/23 04:35
physical exam
aaox3, appears flushed
denies visual changes
denies ambulatory dysfunction
denies numbness/tingling or extremity weakness
--- NOTE | 2023-11-01 12:01 | PTOTSP ---
Speech Therapy Swallowing Assessment
Oral/pharyngeal swallow deemed within functional limits without overt signs of aspiration.
Recommend
1. Continue with Regular Solids and Thin Liquids.
2. Elevated risk for dysphagia given location of brain lesion, therefore the patient was provided with information on signs/symptoms of aspiration.
3. No further skilled ST indicated at this time.
--- NOTE | 2023-11-01 13:03 | CM ---
Patient is for transfer to [facility] today, hospital to hospital transfer. Physician will need to complete paperwork for hospital to hospital transfer.
Plan; Patient to transfer to [facility] today
--- NOTE | 2023-11-01 13:53 | W.DS.TRANS ---
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
-
Discharge Instructions:
Instructions:
Stand-Alone Forms:
Changes to Home Medications: No
Discharge Medications:
DC Medications w/original date entered in [employer]
candesartan 32 mg-hydrochlorothiazide 25 mg tablet 1 tab PO DAILY Blood Pressure 10/30/23
cetirizine 10 mg tablet (Zyrtec) 10 mg PO DAILY Allergies 10/30/23
Home Medication Changes
Pending Results: No
[2023-11-01 15:15] VITALS: BP 120/79
== END 2023-11-01 16:06 | disposition short-term general hospital (02) | DRG 54 ==
LOC: 4 WEST ACU 21:48
PROVIDERS: Clinical Nurse Specialist Family Health; Physician Assistant Medical; ADMITTING PHYSICIAN Internal Medicine; ATTENDING PHYSICIAN Family Medicine; CONSULT PHYSICIAN Neurological Surgery; EMERGENCY PHYSICIAN Emergency Medicine; FAMILY PHYSICIAN Nurse Practitioner Adult Health; OTHER PHYSICIAN Internal Medicine Hematology & Oncology
DX: C79.31 Secondary malignant neoplasm of brain (principal); G93.5 Compression of brain; G93.6 Cerebral edema; C34.90 Malignant neoplasm of unspecified part of unspecified bronchus or lung; C79.51 Secondary malignant neoplasm of bone; E87.1 Hypo-osmolality and hyponatremia; I10 Essential (primary) hypertension; D72.829 Elevated white blood cell count, unspecified; E86.0 Dehydration; Z96.651 Presence of right artificial knee joint; Z92.21 Personal history of antineoplastic chemotherapy; Z92.3 Personal history of irradiation; Z87.891 Personal history of nicotine dependence; Z88.5 Allergy status to narcotic agent; Z88.0 Allergy status to penicillin
CPT/HCPCS: 70450; 70553; 71260; 74177; 80048; 80053; 85025; 85027; 92610; 96374; 96375; 99285; A9575; Q9967

== ENCOUNTER 2025-02-22 06:52 | Emergency (ER) | payer MEDICARE, OTHER, SELFPAY ==
[2025-02-22 06:54] VITALS: BP 163/104
[2025-02-22 07:15] VITALS: BMI 30.4
[2025-02-22 07:17] VITALS: BP 114/92
--- NOTE | 2025-02-22 07:28 | ED.GENMED ---
History of Present Illness
<Viktoriya Abreu DO, Resident - Last Filed: 02/22/25 10:26>
General
Chief Complaint: Breathing Problem
Source: patient
Time Seen by Provider: 02/22/25 07:15
History of Present Illness
History of Present Illness:
Patient is a 65 yo female with a PMH of hypertension and Stage 4 lung cancer to the brain and bones dx in 2019 sp/ chemotherapy, immunotherapy and radiation to brain and hips, on surveillance q3 months. Patient presenting with SOB, cough, fever,
headache and rhinorrhea for 1 day. Patient started feeling unwell yesterday. Reports SOB and non-productive cough that has gotten worst overnight. Patient reports fever of 101 over night. No sick contacts. Patient has had bronchitis before, treated
with steroids and abx, but states that this is worse. Patient recently traveled to [place]. Patient follows at [facility] for Oncologic care. She is due for her surveillance scan in March, and had her brain MRI yesterday, results
pending.
<Tiffany Chauhan MD - Last Filed: 02/22/25 09:44>
General
Nursing documentation reviewed up to this point in time: agreed with
History of Present Illness
History of Present Illness:
Patient is a 65 yo female with a PMH of hypertension and Stage 4 lung cancer to the brain and bones dx in 2019 sp/ chemotherapy, immunotherapy and radiation to brain and hips, on surveillance q3 months. Patient presenting with SOB, cough, fever,
headache and rhinorrhea for 1 day. Patient started feeling unwell yesterday. Reports SOB and non-productive cough that has gotten worst overnight. Patient reports fever of 101 over night. No sick contacts. Patient has had bronchitis before, treated
with steroids and abx, but states that this is worse. Patient recently traveled to [place]. Patient follows at [facility] for Oncologic care. She is due for her surveillance scan in March, and had her brain MRI yesterday, results
pending. Patient on no current chemotherapy
Past History
<Viktoriya Abreu DO, Resident - Last Filed: 02/22/25 10:26>
Past History
ED Past Medical History: Cancer (Lung CA), HTN and Other (Diverticulitis)
ED Past Surgical History: Appendectomy, Bowel resection, , Orthopedic (Carpal tunnel, Right total knee replacement) and Other (Partial thyroidectomy)
Social History
Tobacco: Former smoker
Alcohol: None
Personal:
Living: with family
<Tiffany Chauhan MD - Last Filed: 02/22/25 09:44>
Past History
ED Past Medical History: Cancer (Lung CA-mets to brain and bone)
Social History
Drug: Other
Employment: Other
Family History
Family History: Other
Review of Systems
<Viktoriya Abreu DO, Resident - Last Filed: 02/22/25 10:26>
Review of Systems
Constitutional: Reports fever
EENT: Reports runny nose
Respiratory: Reports cough and trouble breathing
Cardiac: Reports chest pain (when coughing)
ABD/GI: Reports no symptoms
: Reports no symptoms
Musculoskeletal: Reports no symptoms
Skin: Reports no symptoms
<Tiffany Chauhan MD - Last Filed: 02/22/25 09:44>
Review of Systems
Allergies reviewed?: Yes
All Other Systems: ROS reviewed and negative except as documented in HPI and ROS
Neurological: Reports no symptoms
Endocrine: Reports no symptoms
Hematologic/Lymphatic: Reports no symptoms
Psychiatric: Reports no symptoms
Phy Exam
<Viktoriya Abreu DO, Resident - Last Filed: 02/22/25 10:26>
General Physical Exam
General Presentation: no apparent distress
General age: appears stated age
General Skin: warm and dry
General Mental: alert
Cardiovascular Exam
Cardiovascular Exam: regular rate/rhythm and no edema
Heart Sounds: normal
Pulmonary Exam
Pulmonary Exam: generalized wheezing
Oxygen Status: room air
Cough: non productive cough
Gastrointestinal Exam
Gastrointestinal Exam: normal bowel sounds, non tender, soft and non distended
Musculoskeletal Exam
Musculoskeletal Exam: no edema
Skin Exam
Skin Exam: normal color and warm/dry
Psychiatric Exam
Psychiatric Exam: normal mood/affect
<Tiffany Chauhan MD - Last Filed: 02/22/25 09:44>
Physical Exam
Physical Exam:
Physical Exam
General: no apparent distress, not acutely ill
Neck: supple. No meningismus. Patient is coughing
Heart: s1/s2 regular rate and rhythm, no murmur. equal radial pulses.
Lungs: Mildly labored when speaking full sentences. Mild expiratory wheeze. No crackles
Abdomen: normal bowel sounds. not tender. no CVAT
Neuro: alert and oriented. no focal neurological deficits
Skin: no rash
Psychiatric: well kept. interactive and cooperative
Extremities: no edema. no calf tenderness. negative homans. good distal pulses
Scores
<Viktoriya Abreu DO, Resident - Last Filed: 02/22/25 10:26>
Heart Failure Risk
Heart Failure Risk Score: Not Applicable
Course
<Viktoriya Abreu DO, Resident - Last Filed: 02/22/25 10:26>
Orders/Labs/Results
Orders:
Orders
02/22/25 06:59
Electrocardiogram (*1) Urgent
Reason for Study: Chest Pain
EKG- Treatment ONCE
02/22/25 07:29
COVID-19 Antigen Urgent
Source: Nasal Swab
02/22/25 07:59
CR Chest - 2 Views Urgent
Comment:
Reason For Exam: cough, fever
02/22/25 08:04
Ipratropium/Albuterol Sulfate [Duoneb] 3 ml INH R NOW ONE
Prednisone [Deltasone] 40 mg PO NOW STA
02/22/25 09:27
Azithromycin [Zithromax] 500 mg PO NOW STA
Vital Signs
Initial and Last Documented VS:
Initial Vital Signs
Temp Pulse Resp BP Pulse Ox
99.4 F 97 18 163/104 97
02/22/25 06:54 02/22/25 06:54 02/22/25 06:54 02/22/25 06:54 02/22/25 06:54
Last Documented Vital Signs
Temp Pulse Resp BP Pulse Ox
99.5 F 90 18 128/88 94
02/22/25 08:35 02/22/25 09:45 02/22/25 09:45 02/22/25 09:41 02/22/25 09:45
<Tiffany Chauhan MD - Last Filed: 02/22/25 09:44>
Orders/Labs/Results
Orders:
Orders
02/22/25 06:59
Electrocardiogram (*1) Urgent
Reason for Study: Chest Pain
EKG- Treatment ONCE
02/22/25 07:29
COVID-19 Antigen Urgent
Source: Nasal Swab
02/22/25 07:59
CR Chest - 2 Views Urgent
Comment:
Reason For Exam: cough, fever
02/22/25 08:04
Ipratropium/Albuterol Sulfate [Duoneb] 3 ml INH R NOW ONE
Prednisone [Deltasone] 40 mg PO NOW STA
02/22/25 09:27
Azithromycin [Zithromax] 500 mg PO NOW STA
Vital Signs
Initial and Last Documented VS:
Initial Vital Signs
Temp Pulse Resp BP Pulse Ox
99.4 F 97 18 163/104 97
02/22/25 06:54 02/22/25 06:54 02/22/25 06:54 02/22/25 06:54 02/22/25 06:54
Last Documented Vital Signs
Temp Pulse Resp BP Pulse Ox
99.5 F 90 18 128/88 94
02/22/25 08:35 02/22/25 09:45 02/22/25 09:45 02/22/25 09:41 02/22/25 09:45
<Viktoriya Abreu DO, Resident - Last Filed: 02/22/25 10:26>
MDM/Problems Addressed
Differential Diagnosis Includes:
Covid/Flu/RSV, Pneumonia, bronchitis, malignant pleural effusions
<Tiffany Chauhan MD - Last Filed: 02/22/25 09:44>
MDM/Problems Addressed
MDM/Problems Addressed:
Patient presents with acute cough and fever
Chronic conditions affecting care:
Stage IV lung cancer
Acute Exacerbation and/or Progression of Chronic Illness:
Patient may have an acute pleural effusion or pneumonia due to chronic lung cancer
<Viktoriya Abreu DO, Resident - Last Filed: 02/22/25 10:26>
*Pulse Oximetry
SaO2: 96
Oxygen Mode of Delivery: Room air
Patient hypoxic: no
<Tiffany Chauhan MD - Last Filed: 02/22/25 09:44>
*Radiology
Radiology exam reviewed: preliminary read by ED provider (Chest x-ray reviewed by me. No acute disease. No pleural effusion or infiltrate) and radiology read reviewed
*Pulse Oximetry
Comment: 96% on room air
*EKG
Interpreted by ED Provider?: Yes
Interpretation: abnormal
Comparison EKG: no changes
Rate: normal
Rhythm: sinus
[place]: normal axis
Interval: normal interval
QRS Pattern: low voltage
Ischemia: no ischemia
*Diffusion Furnace Operator Interpretation
Rate: normal
Interpretation: normal
Rhythm: sinus
*Critical Care Note
Total Time (30-74mins, 75-104mins- exclusive of procedures): Not Applicable
Data Reviewed
Review of Other/Old Records Reveals: Radiology Studies (Reviewed CAT scan report from 2023 which showed that patient has history of linear density in right upper lobe)
Source: patient
<Tiffany Chauhan MD - Last Filed: 02/22/25 09:44>
Patient Management
Social determinants of health affecting care: Living situation and Strong social support
Escalation/DeEscalation of care consider admission/obs:
Patient appears nontoxic and hemodynamically stable. She is not hypoxic and feels better after the DuoNeb. Patient is very confident and would like to go home. She appears well-hydrated. Patient encouraged to return for any lethargy or increased
shortness of breath
ED Attending Note
<Viktoriya Abreu DO, Resident - Last Filed: 02/22/25 10:26>
-
Portions of this chart may have been created with voice recognition software.� Occasional wrong word or��sound alike� substitutions may have occurred due to the inherent limitations of voice recognition software.
Discharge Plan
Departure
Patient Disposition: Home (Routine Discharge)
Date of Disposition: 02/22/25
Time of Disposition: 09:34
Patient with high blood pressure during this ER visit?: No
Condition: Good
Covid-19: Negative COVID-19
Discharge Problem:
Acute bronchitis, Acute respiratory distress
Instructions: Bronchitis in adults - ED discharge instructions
Prescriptions:
New
prednisone 10 mg tablet
10 mg PO DIRECTED Qty: 16 0RF
Rx Instructions:
Take 40 mg on day 1
Take 30 mg on day 2 and day 3
Take 20 mg on day 4 and day 5
Take 10 mg on day 6 and day 7
albuterol sulfate [Ventolin HFA] 90 mcg/actuation HFA aerosol inhaler
1 - 2 puff inhalation Q4H PRN (Reason: shortness of breath or wheezing) Qty: 8.5 0RF
azithromycin 250 mg tablet
250 mg PO DAILY Qty: 4 0RF
No Action
cetirizine [Zyrtec] 10 mg Tablet
10 mg PO DAILY
candesartan-hydrochlorothiazid 32-25 mg Tablet
1 tab PO DAILY
Referrals:
Thee Morrison DO [Family Provider, Family Practice]
Activity Restrictions/Additional Instructions:
Return with any increased shortness of breath
Take 1000 mg of Tylenol every 4-6 hours for fever
Interventions
Interventions:
*Risk Screen - Suicide Last Done: 02/22/25 06:54
*General Assessment Last Done: 02/22/25 06:54
*Neglect/Abuse Screening Last Done: 02/22/25 06:54
*ED- Fall Risk Assessment Last Done: 02/22/25 07:15
*ED COVID-19 Vaccine History Last Done: 02/22/25 07:15
*Nursing Disposition Last Done: 02/22/25 09:47
ED- Cardiac Assessment Last Done: 02/22/25 07:20
ED- Pulmonary Assessment Last Done: 02/22/25 07:20
Discharge Date and Time
Discharge Date/Time: 02/22/25 09:48
Print Language: SPANISH
[2025-02-22 07:59] LABS: COVID-19 Antigen Negative (Negative)
[2025-02-22 08:08] VITALS: BP 112/71
[2025-02-22] MEDS: DELTASONE 40 MG PO (08:32)
[2025-02-22] MEDS: DUONEB 3 ML INH (08:33)
[2025-02-22 09:41] VITALS: BP 128/88
[2025-02-22] MEDS: ZITHROMAX 500 MG PO (09:44)
== END 2025-02-22 09:48 | disposition home or self-care (01) ==
LOC: EMR 06:52
PROVIDERS: EMERGENCY PHYSICIAN Emergency Medicine; FAMILY PHYSICIAN Family Medicine
DX: R06.03 Acute respiratory distress (principal); J20.9 Acute bronchitis, unspecified; R51.9 Headache, unspecified; Z11.52 Encounter for screening for COVID-19; I10 Essential (primary) hypertension; Z85.118 Personal history of other malignant neoplasm of bronchus and lung; C79.31 Secondary malignant neoplasm of brain; C79.51 Secondary malignant neoplasm of bone; Z92.3 Personal history of irradiation; Z92.21 Personal history of antineoplastic chemotherapy; K57.92 Diverticulitis of intestine, part unspecified, without perforation or abscess without bleeding; Z98.0 Intestinal bypass and anastomosis status; Z96.651 Presence of right artificial knee joint; Z87.891 Personal history of nicotine dependence; Z88.5 Allergy status to narcotic agent; Z88.0 Allergy status to penicillin
CPT/HCPCS: 99285; 94640; 71046; 87811; 93005